=== PATIENT | female | born 1975 ===

== ENCOUNTER 2016-10-02 11:44 | Emergency (ER) | payer OTHER ==
[2016-10-02 11:44] VITALS: BMI 28.4
[2016-10-02 11:50] VITALS: O2SAT 100
[2016-10-02 13:07] LABS: SQUAMOUS EPITHIAL 1 /hpf (0-5); URINE BACTERIA RARE (<OCC); URINE BILIRUBIN NEGATIVE (NEGATIVE); URINE BLOOD NEGATIVE (NEGATIVE); URINE CLARITY Clear (Clear); URINE COLOR Straw (YELLOW); URINE GLUCOSE (UA) NORMAL (Normal); URINE LEUKOCYTE ESTERASE NEG Leu/uL (Negative); URINE NITRATE NEGATIVE (NEGATIVE); URINE PROTEIN NEGATIVE (NEGATIVE); URINE UROBILINOGEN NORMAL mg/dL (0.2-1.0)
--- NOTE | 2016-10-02 13:40 | C.PDOC ---
History Of Present Illness A 41 y/o female c/o suprapubic pain with nausea for the last 3 days. Pt states nausea occurred prior to the lower abdominal pain. Pain is described as intermittent and notes it feels "inflamed" with 2 episodes of vomiting. Denies fever, chills, vaginal bleeding, discharge, dysuria, hematuria, diarrhea, or any other complaints. LMP was August 16 and pt is unsure if she is . Time Seen by Provider: 10/02/16 12:20 Chief Complaint (Nursing): GI Problem History Per: Patient History/Exam Limitations: no limitations Onset/Duration Of Symptoms: Days Current Symptoms Are (Timing): Still Present Severity: Mild Location Of Pain/Discomfort: Suprapubic Radiation Of Pain To:: None Quality Of Discomfort: Burning Associated Symptoms: Nausea, Vomiting. denies: Diarrhea Recent travel outside of the [place]: No Additional History Per: Patient Abnormal Vaginal Bleeding: No Last Menstral Period: August 16, 2016 Past Medical History Reviewed: Historical Data, Nursing Documentation, Vital Signs Vital Signs: Last Vital Signs Temp 97.9 F 10/02/16 16:21 Pulse 70 10/02/16 16:21 Resp 18 10/02/16 16:21 BP 123/84 10/02/16 16:21 Pulse Ox 100 10/02/16 16:21 Surgical History: Family History: States: Unknown Family Hx - Social History Hx Alcohol Use: No Hx Substance Use: No - Immunization History Hx Tetanus Toxoid Vaccination: No Hx Influenza Vaccination: No Hx Pneumococcal Vaccination: No Review Of Systems Except As Marked, All Systems Reviewed And Found Negative. Constitutional: Negative for: Fever, Chills Gastrointestinal: Positive for: Nausea, Vomiting, Abdominal Pain (Suprapubic). Negative for: Diarrhea Genitourinary: Negative for: Dysuria, Hematuria, Vaginal Discharge, Vaginal Bleeding Physical Exam - Physical Exam Appears: Non-toxic, No Acute Distress Skin: Warm, Dry Head: Atraumatic, Normacephalic Eye(s): bilateral: Normal Inspection, PERRL, EOMI Oral Mucosa: Moist Neck: Normal, Normal ROM, Trachea Midline Cardiovascular: Rhythm Regular, No Murmur Respiratory: Normal Breath Sounds, No Accessory Muscle Use, No Rales, No Rhonchi , No Wheezing Gastrointestinal/Abdominal: Bowel Sounds (normal), Soft, Tenderness (Suprapubic tenderness), No Organomegaly, No Mass, No Distention, No Guarding, No Rebound Back: Normal Inspection, No CVA Tenderness, No Vertebral Tenderness Pelvic: Normal External Exam, No Vaginal Bleeding, No Vaginal Discharge, No Cervical Motion Tenderness, No Adnexal Tenderness, Tender Uterus, Other (COMPLIANCE AIDEGIBSON Cabrera was present during exam) Extremity: Normal ROM, No Tenderness, No Calf Tenderness, Capillary Refill ( normal), No Deformity, No Swelling Neurological/Psych: Oriented x3, Normal Speech, Normal Cognition, Normal Motor, Normal Sensation ED Course And Treatment - Laboratory Results Result Diagrams: 10/02/16 14:20 10/02/16 14:20 Lab Interpretation: Normal Urine POC: Negative O2 Sat by Pulse Oximetry: 100 (RA) Pulse Ox Interpretation: Normal - CT Scan/US US pelvis Other Rad Studies (CT/US): Read By Radiologist CT/US Interpretation: FINDINGS: UTERUS: Measures 11.1 x 4.9 x 7.1 cm. Normal in size and appearance. No fibroid or other mass lesion seen. ENDOMETRIUM: Measures 16 mm in diameter. Unremarkable. CERVIX: No cervical abnormality identified. RIGHT OVARY: Measures 3.3 x 2.0 x 2.9 cm. No solid mass. Normal flow. Simple cyst, 1.9 x 1.8 x 1.3 cm, likely physiologic. LEFT OVARY: Measures 2.8 x 1.8 x 3.0 cm. No solid mass. Normal flow. Simple cyst, 1.8 x 1.4 x 1.6 cm. Likely physiologic. FREE FLUID: No significant free fluid noted. OTHER FINDINGS: None. IMPRESSION: Unremarkable pelvic ultrasound examination. Small simple cysts in each ovary, likely physiologic. Medical Decision Making Medical Decision Making: Impression: A 41 y/o female c/o suprapubic pain with nausea for the last 3 days. Based on exam, to r/o ectopic , UTI, vs PID Plans: -UA -US Pelvis -Blood labs -Reassess On reeval: Patient still continued to c/o suprapubic pain. Patient is laying in bed in mild painful distress. UA and HCG both negative. Pelvic exam performed by PA ( see physical exam). Labs and US pelvic ordered. On second re-evaluation : Pt is in no acute distress at this time, she reports significant improvement of pain. On exam, abdomen is soft with no tenderness. Diagnostic results reviewed and d/w the patient in great detail. Labs wnl. Pelvic US shows physiologic ovarian cyst otherwise no acute findings. Patient informed of the possibility of PID and will treat patient as such. Rocephin 250 mg IV ordered. Rx for doxycycline provided, advised to f/u with head of design/pmd. Pt was instructed to follow up with PMD or head of design within 1-2 days if symptoms persists. Disposition - Disposition Referrals: [facility] at [facility] [Outside] Disposition: HOME/ ROUTINE Disposition Time: 16:06 Condition: STABLE Prescriptions: Doxycycline Hyclate [Doryx] 100 mg PO BID #28 cap Instructions: Pelvic Inflammatory Disease (ED), Pelvic Pain in Women (ED) Forms: Work Excuse Print Language: PERUVIAN - Clinical Impression Clinical Impression: Pelvic pain, PID (acute pelvic inflammatory disease) - PA / TOBACCO EDUCATOR / Resident Statement MD/DO has reviewed & agrees with the documentation as recorded. - Scribe Statement The provider has reviewed the documentation as recorded by the Scribe Bart nguyen All medical record entries made by the Jessicaiblizzie were at my direction and personally dictated by me. I have reviewed the chart and agree that the record accurately reflects my personal performance of the history, physical exam, medical decision making, and the department course for this patient. I have also personally directed, reviewed, and agree with the discharge instructions and disposition.
[2016-10-02 14:27] LABS: BASO % 0.5 % (0.0-2.0); EOS # 0.1 K/uL (0.0-0.7); EOS % 1.2 % (0.0-4.0); HEMOGLOBIN 12.6 g/dL (11.0-16.0); LYMPH # 1.4 K/uL (1.0-4.3); LYMPH % 24.7 % (20.0-40.0); MEAN CELL VOLUME 83.7 fL (81.0-99.0); MEAN CORPUSCULAR HEMOGLOBIN 28.4 pg (27.0-31.0); MEAN CORPUSCULAR HGB CONC 33.9 g/dL (33.0-37.0); MEAN PLATELET VOLUME 9.1 fL (7.2-11.7); MONO # 0.4 K/uL (0.0-0.8); MONO % 7.9 % (0.0-10.0); NEUT # 3.6 K/uL (1.8-7.0); NEUT % 65.7 % (50.0-75.0); RBC 4.44 Mil/uL (3.80-5.20); RED CELL DISTRIBUTION WIDTH 13.1 % (11.5-14.5); WHITE BLOOD COUNT 5.5 K/uL (4.8-10.8)
[2016-10-02 14:43] LABS: ALB/GLOB RATIO 1.1 (1.0-2.1); AST/SGOT 60 U/L (14-36); BLOOD UREA NITROGEN 11 mg/dL (7-17); CALCIUM 8.8 mg/dl (8.6-10.4); GFR AFRICAN-AMERICAN > 60; GFR NON-AFRICAN AMERICAN > 60
[2016-10-02 14:44] LABS: ALT/SGPT 48 U/L (9-52)
[2016-10-02 15:11] VITALS: PULSE 70; RESP 18
--- NOTE | 2016-10-02 15:54 | US ---
HISTORY: pelvic pain, r/o ovarian torsion COMPARISON: None available. TECHNIQUE: Transabdominal and transvaginal FINDINGS: UTERUS: Measures 11.1 x 4.9 x 7.1 cm. Normal in size and appearance. No fibroid or other mass lesion seen. ENDOMETRIUM: Measures 16 mm in diameter. Unremarkable. CERVIX: No cervical abnormality identified. RIGHT OVARY: Measures 3.3 x 2.0 x 2.9 cm. No solid mass. Normal flow. Simple cyst, 1.9 x 1.8 x 1.3 cm, likely physiologic. LEFT OVARY: Measures 2.8 x 1.8 x 3.0 cm. No solid mass. Normal flow. Simple cyst, 1.8 x 1.4 x 1.6 cm. Likely physiologic. FREE FLUID: No significant free fluid noted. OTHER FINDINGS: None. IMPRESSION: Unremarkable pelvic ultrasound examination. Small simple cysts in each ovary, likely physiologic.
[2016-10-02] MEDS ORDERED: cefTRIAXone (Rocephin) 250 mg Inj IVPB STA (16:03)
[2016-10-02 16:22] VITALS: BP 123/84; TEMP 97.9
== END 2016-10-02 16:56 | disposition home or self-care (01) ==
LOC: C.ER 11:44
DX: N73.0 Acute parametritis and pelvic cellulitis (principal)
CPT/HCPCS: 76830; 76856; 80053; 81001; 85025; 87086; 96374; 96375; 99284; J0696; J1885; J2405

== ENCOUNTER 2016-12-07 02:35 | Emergency (ER) | payer OTHER ==
[2016-12-07 02:35] VITALS: BMI 28.4
--- NOTE | 2016-12-07 02:59 | C.PDOC ---
History Of Present Illness 41 year old female who presents to the ER with a complaint of lower abdominal pain that began tonight associated with vaginal discharge. Denies dysuria or fever. Time Seen by Provider: 12/07/16 02:50 Chief Complaint (Nursing): Abdominal Pain History Per: Patient History/Exam Limitations: no limitations Onset/Duration Of Symptoms: Hrs Current Symptoms Are (Timing): Still Present Location Of Pain/Discomfort: Suprapubic Radiation Of Pain To:: None Quality Of Discomfort: Unable To Describe Associated Symptoms: denies: Fever, Urinary Symptoms Exacerbating Factors: None Alleviating Factors: None Recent travel outside of the [place]: No Abnormal Vaginal Bleeding: No Last Menstral Period: October Past Medical History Reviewed: Historical Data, Nursing Documentation, Vital Signs Vital Signs: Last Vital Signs Temp 98.2 F 12/07/16 05:01 Pulse 83 12/07/16 05:01 Resp 18 12/07/16 05:01 BP 119/77 12/07/16 05:01 Pulse Ox 100 12/07/16 05:01 - Medical History PMH: No Chronic Diseases Surgical History: Family History: States: Unknown Family Hx - Social History Hx Alcohol Use: Yes Hx Substance Use: No - Immunization History Hx Tetanus Toxoid Vaccination: No Hx Influenza Vaccination: No Hx Pneumococcal Vaccination: No Review Of Systems Constitutional: Negative for: Fever Genitourinary: Positive for: Vaginal Discharge. Negative for: Dysuria, Hematuria Physical Exam - Physical Exam Appears: Non-toxic, No Acute Distress Skin: Normal Color, Warm, Dry Head: Atraumatic, Normacephalic Oral Mucosa: Moist Chest: Symmetrical, No Tenderness Cardiovascular: Rhythm Regular, No Murmur Respiratory: Normal Breath Sounds, No Rales, No Rhonchi, No Wheezing Gastrointestinal/Abdominal: Soft, Tenderness (Hypogastric) Pelvic: Normal External Exam, Cervical Motion Tenderness, Adnexal Tenderness ( Right), Other (Scant off white mucous discharge) Neurological/Psych: Oriented x3, Normal Speech, Normal Cognition ED Course And Treatment - Laboratory Results Result Diagrams: 12/07/16 03:12 12/07/16 03:12 Progress Note: Blood work, urinalysis, and pelvic US ordered. On reevaluation, abdomen is soft, mild hypogastric tenderness, no rebound or guarding; no cervical tenderness or adnexal tenderness. Disposition Counseled Patient/Family Regarding: Diagnosis - Disposition Referrals: [facility] [Outside] Disposition: HOME/ ROUTINE Disposition Time: 05:27 Condition: STABLE Prescriptions: Acetaminophen [Tylenol 325mg tab] 650 mg PO Q4 #20 tab Instructions: Abdominal Pain in (ED), First Trimester (ED) Forms: [employer] (Maltese), Gen Discharge Inst Danish Print Language: YORUBA - POA Present On Arrival: None - Clinical Impression Clinical Impression: , Pelvic pain affecting - Scribe Statement The provider has reviewed the documentation as recorded by the Scriblizzie Love All medical record entries made by the Scribe were at my direction and personally dictated by me. I have reviewed the chart and agree that the record accurately reflects my personal performance of the history, physical exam, medical decision making, and the department course for this patient. I have also personally directed, reviewed, and agree with the discharge instructions and disposition.
--- NOTE | 2016-12-07 03:00 | C.PDOC ---
Time Seen by Provider: 12/07/16 02:50 Chief Complaint (Nursing): Abdominal Pain Past Medical History Surgical History: Family History: States: Unknown Family Hx - Social History Hx Alcohol Use: Yes Hx Substance Use: No - Immunization History Hx Tetanus Toxoid Vaccination: No Hx Influenza Vaccination: No Hx Pneumococcal Vaccination: No Disposition - Disposition Forms: [employer] (Montenegrin)
[2016-12-07 03:18] LABS: BASO % 0.4 % (0.0-2.0); EOS # 0.2 K/uL (0.0-0.7); EOS % 2.4 % (0.0-4.0); HEMATOCRIT 36.7 % (34.0-47.0); LYMPH # 2.2 K/uL (1.0-4.3); MEAN CELL VOLUME 85.2 fL (81.0-99.0); MEAN CORPUSCULAR HEMOGLOBIN 28.5 pg (27.0-31.0); MEAN CORPUSCULAR HGB CONC 33.5 g/dL (33.0-37.0); MEAN PLATELET VOLUME 8.2 fL (7.2-11.7); MONO # 0.5 K/uL (0.0-0.8); RED CELL DISTRIBUTION WIDTH 13.9 % (11.5-14.5); WHITE BLOOD COUNT 6.9 K/uL (4.8-10.8)
[2016-12-07] MEDS ORDERED: Sodium Chloride 0.9% 1,000 ML IV ONE (03:27)
[2016-12-07 03:28] LABS: RBC URINE 1 /hpf (0-3); URINE BACTERIA RARE (<OCC); URINE BILIRUBIN NEGATIVE (NEGATIVE); URINE BLOOD NEGATIVE (NEGATIVE); URINE COLOR Straw (YELLOW); URINE GLUCOSE (UA) NORMAL (Normal); URINE KETONE NEGATIVE (NEGATIVE); URINE LEUKOCYTE ESTERASE NEG Leu/uL (Negative); URINE PROTEIN NEGATIVE (NEGATIVE); URINE UROBILINOGEN NORMAL mg/dL (0.2-1.0); WBC URINE 1 /hpf (0-5)
[2016-12-07] MEDS ORDERED: Sodium Chloride 0.9% 1,000 ML ONE (03:31)
[2016-12-07 03:34] LABS: ALB/GLOB RATIO 1.2 (1.0-2.1); ALKALINE PHOSPHATASE 64 U/L (38-126); ALT/SGPT 28 U/L (9-52); AST/SGOT 33 U/L (14-36); BILIRUBIN,TOTAL 0.3 mg/dL (0.2-1.3); BLOOD UREA NITROGEN 13 mg/dL (7-17); CALCIUM 9.2 mg/dl (8.6-10.4); CARBON DIOXIDE 24 mmol/L (22-30); CHLORIDE 103 mmol/L (98-107); GFR AFRICAN-AMERICAN > 60; GLUCOSE,RANDOM 107 mg/dL (65-105); SODIUM 141 mmol/L (132-148); TOTAL PROTEIN 7.4 g/dL (6.3-8.3)
--- NOTE | 2016-12-07 05:01 | US ---
EXAM: US First Trimester, Transabdominal CLINICAL HISTORY: 41 years old, female; Pain; complicated by abdominal or pelvic pain; Right lower quadrant; First trimester; Gestational age or lmp: 7-6-17; ; Additional info: Right adnexal tenderness TECHNIQUE: Real-time transabdominal obstetrical ultrasound of the maternal pelvis and a first trimester with image documentation. COMPARISON: No relevant prior studies available. FINDINGS: Gestation: Single live intrauterine gestation. heart rate of 154 beats per minute. Velarde-rump length of 1.74 cm, correlating with gestational age of 8 weeks 1 day. Uterus/cervix: 1.3 x 0.9 x 1.8 cm collection along gestational sac. No cervical dilatation or effacement. Ovaries: RIGHT ovary: Normal. LEFT ovary: 2.4 x 1.7 x 2.6 cm anechoic lesion. No adnexal masses. Free fluid: No significant free fluid. IMPRESSION: 1. Single live intrauterine gestation. 2. Subchorionic hemorrhage. 3. LEFT ovarian cyst.
[2016-12-07 05:02] VITALS: BP 119/77; PULSE 83; RESP 18; TEMP 98.2; O2SAT 100
== END 2016-12-07 05:42 | disposition home or self-care (01) ==
LOC: C.ER 02:35
DX: O26.891 Other specified pregnancy related conditions, first trimester (principal); R10.2 Pelvic and perineal pain; Z3A.08 8 weeks gestation of pregnancy
CPT/HCPCS: 76801; 80053; 81001; 83690; 84702; 84703; 85025; 86850; 86900; 87070; 87081; 87086; 87491; 87591; 96360; 99285; J7040

== ENCOUNTER 2017-02-15 15:34 | Emergency (ER) | payer SELFPAY ==
[2017-02-15 15:35] VITALS: BMI 28.4
[2017-02-15 15:43] VITALS: RESP 16; TEMP 97.9
[2017-02-15] MEDS ORDERED: Sodium Chloride 0.9% 1,000 ML IV ONE (16:23)
[2017-02-15] MEDS ORDERED: Sodium Chloride 0.9% 1,000 ML ONE (16:30)
[2017-02-15 16:32] LABS: BASO % 0.5 % (0.0-2.0); EOS # 0.1 K/uL (0.0-0.7); HEMATOCRIT 34.1 % (34.0-47.0); LYMPH # 1.6 K/uL (1.0-4.3); LYMPH % 19.6 % (20.0-40.0); MEAN CELL VOLUME 85.9 fL (81.0-99.0); MEAN CORPUSCULAR HEMOGLOBIN 29.7 pg (27.0-31.0); MEAN CORPUSCULAR HGB CONC 34.5 g/dL (33.0-37.0); MEAN PLATELET VOLUME 7.9 fL (7.2-11.7); MONO # 0.6 K/uL (0.0-0.8); MONO % 7.4 % (0.0-10.0); NRBC % 0.1 % (0.0-2.0); RED CELL DISTRIBUTION WIDTH 13.6 % (11.5-14.5); WHITE BLOOD COUNT 8.2 K/uL (4.8-10.8)
[2017-02-15 16:43] LABS: CHLORIDE 104 mmol/L (98-107); RBC URINE 1 /hpf (0-3); URINE BACTERIA FEW (<OCC); URINE BILIRUBIN NEGATIVE (NEGATIVE); URINE BLOOD NEGATIVE (NEGATIVE); URINE COLOR Yellow (YELLOW); URINE GLUCOSE (UA) NORMAL (Normal); URINE KETONE NEGATIVE (NEGATIVE); URINE PROTEIN NEGATIVE (NEGATIVE); URINE UROBILINOGEN NORMAL mg/dL (0.2-1.0); WBC URINE 6 /hpf (0-5)
[2017-02-15 16:44] LABS: POTASSIUM 3.6 mmol/L (3.6-5.2); SODIUM 133 mmol/L (132-148); URINE LEUKOCYTE ESTERASE 1+ Leu/uL (Negative)
[2017-02-15 16:46] LABS: ALB/GLOB RATIO 0.9 (1.0-2.1); AST/SGOT 40 U/L (14-36); BILIRUBIN,TOTAL 0.3 mg/dL (0.2-1.3); CARBON DIOXIDE 20 mmol/L (22-30); GFR AFRICAN-AMERICAN > 60; TOTAL PROTEIN 7.7 g/dL (6.3-8.3)
[2017-02-15 16:47] LABS: ALKALINE PHOSPHATASE 54 U/L (38-126); ALT/SGPT 54 U/L (9-52); BLOOD UREA NITROGEN 10 mg/dL (7-17); CALCIUM 8.6 mg/dl (8.6-10.4); GLUCOSE,RANDOM 74 mg/dL (65-105)
--- NOTE | 2017-02-15 17:40 | C.PDOC ---
History Of Present Illness 42 year old female, who is currently around 17 weeks gestational age, presents to the ED for evaluation of lower pelvic discomfort which began around 2 days ago. Patient underwent an ultrasound when she was around 10 weeks , and the results were unremarkable. Patient denies vaginal discharge/bleeding at this time. Time Seen by Provider: 02/15/17 15:55 Chief Complaint (Nursing): Abdominal Pain History Per: Patient History/Exam Limitations: no limitations Onset/Duration Of Symptoms: Days (2) Current Symptoms Are (Timing): Still Present Location Of Pain/Discomfort: Other (lower pelvic region ) Radiation Of Pain To:: None Additional History Per: Patient Abnormal Vaginal Bleeding: No Past Medical History Reviewed: Historical Data, Nursing Documentation, Vital Signs Vital Signs: Last Vital Signs Temp 97.9 F 02/15/17 15:38 Pulse 78 02/15/17 20:05 Resp 16 02/15/17 20:05 BP 132/78 02/15/17 20:05 Pulse Ox 98 02/15/17 20:05 - Medical History PMH: No Chronic Diseases Surgical History: Family History: States: Unknown Family Hx - Social History Hx Alcohol Use: Yes Hx Substance Use: No - Immunization History Hx Tetanus Toxoid Vaccination: No Hx Influenza Vaccination: No Hx Pneumococcal Vaccination: No Review Of Systems Genitourinary: Positive for: Pelvic Pain. Negative for: Vaginal Discharge, Vaginal Bleeding Physical Exam - Physical Exam Appears: Non-toxic, No Acute Distress, Other (obese ) Skin: Normal Color, Warm, Dry Eye(s): bilateral: Normal Inspection Oral Mucosa: Moist Neck: Supple Chest: Symmetrical, No Deformity, No Tenderness Cardiovascular: Rhythm Regular, No Murmur Respiratory: Normal Breath Sounds, No Rales, No Rhonchi, No Wheezing Gastrointestinal/Abdominal: Soft, No Tenderness, No Guarding, No Rebound, Other (uterus is 2cm below umbilicus ) Extremity: Normal ROM, Capillary Refill (less than 2 seconds ) Neurological/Psych: Oriented x3, Normal Speech, Normal Cognition Gait: Steady ED Course And Treatment - Laboratory Results Result Diagrams: 02/15/17 16:28 02/15/17 16:28 Lab Interpretation: Normal (quant hcg 25,580, O+) Urine POC: Positive O2 Sat by Pulse Oximetry: 99 (on RA) Pulse Ox Interpretation: Normal - CT Scan/US Transabd US Other Rad Studies (CT/US): Read By Radiologist, Radiology Report Reviewed CT/US Interpretation: IMPRESSION: 1. Single live intrauterine gestation. Progress Note: Bloodwork, UA, Transabd US ordered and reviewed. Pepcid IVP, Tylenol PO, Zofran IVP and IV Fluids administered. Reevaluation Time: 19:53 Reassessment Condition: Improved Medical Decision Making Medical Decision Making: normal 18W1D consider - f/u w opt OB Disposition Doctor Will See Patient In The: Office Counseled Patient/Family Regarding: Studies Performed, Diagnosis - Disposition Referrals: [facility] [Outside] [facility] [Outside] Disposition: HOME/ ROUTINE Disposition Time: 19:53 Condition: GOOD Additional Instructions: Normal @ 18W1D no UTI QHCG 25,580 O+ follow-up with your OB as needed Constipation: consider a laxative and diet/exercise changes. Instructions: (ED), Constipation (ED) Forms: [employer] (Portuguese) Print Language: INDIAN - Clinical Impression Clinical Impression: , related pelvic pain in second trimester, antepartum - Scribe Statement The provider has reviewed the documentation as recorded by the Scribe (Pura Linares) Provider Attestation: All medical record entries made by the Scribe were at my direction and personally dictated by me. I have reviewed the chart and agree that the record accurately reflects my personal performance of the history, physical exam, medical decision making, and the department course for this patient. I have also personally directed, reviewed, and agree with the discharge instructions and disposition.
--- NOTE | 2017-02-15 19:49 | US ---
EXAM: US After First Trimester, Transabdominal CLINICAL HISTORY: 42 years old, female; Pain; complicated by abdominal or pelvic pain; Lower; Second trimester; Gestational age or lmp: 18w1d; ; Prior surgery; Surgery date: 6+ months; Surgery type: Prev c sections; Additional info: 17 weeks, lower pelvic pain TECHNIQUE: Real-time transabdominal obstetrical ultrasound of the maternal pelvis and a second or third trimester with image documentation. COMPARISON: No relevant prior studies available. FINDINGS: Fetus: Single live intrauterine gestation. Heart rate: heart rate of 144 beats per minute. Presentation: Breech. Placenta: Posterior. No placenta previa or abruption. Amniotic fluid: Normal. Anatomy: No gross anomaly is appreciated. BIOMETRICS Gestational age by US: Estimated gestational age of 18 weeks 1 day by measurements. EFW: Estimated weight of 229 g. BPD: 3.9 cm, correlating with 17 weeks 6 days. HC: 14.8 cm, correlating with 18 weeks 0 days. AC: 12.8 cm, correlating with 18 weeks 2 days. FL: 2.7 cm, correlating with 18 weeks 1 day. MATERNAL: Uterus: Unremarkable. No myometrial mass. Cervix: No cervical dilatation or effacement. Adnexa: Ovaries not visualized. No adnexal masses. Free fluid: No significant free fluid. IMPRESSION: 1. Single live intrauterine gestation.
[2017-02-15 20:05] VITALS: BP 132/78; PULSE 78
[2017-02-15 20:45] VITALS: O2SAT 99
== END 2017-02-15 20:05 | disposition home or self-care (01) ==
LOC: C.ER 15:34
DX: O26.892 Other specified pregnancy related conditions, second trimester (principal); R10.2 Pelvic and perineal pain; Z3A.18 18 weeks gestation of pregnancy
CPT/HCPCS: 76815; 80053; 81001; 84702; 85025; 86850; 86900; 96361; 96374; 96375; 99284; J2405; J7040

== ENCOUNTER 2018-02-25 19:16 | Emergency (ER) | payer OTHER ==
[2018-02-25 19:17] VITALS: BMI 28.4
--- NOTE | 2018-02-25 19:39 | C.PDOC ---
History Of Present Illness 43 year old female presents to the ED for evaluation of a headache which has been intermittent for 3 weeks. Patient states her symptoms worsened tonight, prompting visit. Patient reports pain around her right eye region and reports n ausea. She denies fever, chills, vomiting. Chief Complaint (Nursing): Weakness/Neurological Deficit History Per: Patient History/Exam Limitations: no limitations Onset/Duration Of Symptoms: Intermittent Episodes, Other (3 weeks ) Current Symptoms Are (Timing): Still Present Past Medical History Reviewed: Historical Data, Nursing Documentation, Vital Signs - Medical History PMH: No Chronic Diseases Surgical History: Family History: States: Unknown Family Hx - Social History Hx Alcohol Use: Yes Hx Substance Use: No - Immunization History Hx Tetanus Toxoid Vaccination: No Hx Influenza Vaccination: No Hx Pneumococcal Vaccination: No Review Of Systems Constitutional: Negative for: Fever, Chills Gastrointestinal: Positive for: Nausea. Negative for: Vomiting Neurological: Positive for: Headache Physical Exam - Physical Exam Appears: Non-toxic, No Acute Distress Skin: Normal Color, Warm, Dry Head: Atraumatic, Normacephalic Eye(s): bilateral: Normal Inspection Oral Mucosa: Moist Neck: Supple Chest: Symmetrical, No Deformity, No Tenderness Cardiovascular: Rhythm Regular, No Murmur Respiratory: Normal Breath Sounds, No Rales, No Rhonchi, No Wheezing Extremity: Normal ROM, Capillary Refill (less than 2 seconds ) Neurological/Psych: Oriented x3, Normal Speech, Normal Cognition Gait: Steady ED Course And Treatment - Laboratory Results Result Diagrams: 02/25/18 19:46 02/25/18 20:35 ECG: Interpreted By Me, Viewed By Me ECG Rhythm: Sinus Rhythm ECG Interpretation: Normal, No Acute Changes Interpretation Of ECG: NSR, normal tracings. Rate From EC O2 Sat by Pulse Oximetry: 100 (on RA) Pulse Ox Interpretation: Normal Progress Note: Bloodwork, CT Head, EKG ordered and reviewed. Toradol IVP given. Disposition Counseled Patient/Family Regarding: Diagnosis - Disposition Referrals: [facility] at [facility] [Outside] Disposition: HOME/ ROUTINE Disposition Time: 21:10 Condition: STABLE Prescriptions: Naproxen 375 mg PO Q6 #14 tablet Potassium Chloride [K-Tab ER] 20 meq PO DAILY #10 tablet.er Instructions: Headache, Adult, Hypokalemia (DC) Forms: [employer] (Tanzanian), Gen Discharge Inst Kazakh Print Language: [place]IZ[place] - POA Present On Arrival: None - Clinical Impression Clinical Impression: Headache, Hypokalemia - Scribe Statement The provider has reviewed the documentation as recorded by the Scribe (Pura Linares) Provider Attestation: All medical record entries made by the Scribe were at my direction and personally dictated by me. I have reviewed the chart and agree that the record accurately reflects my personal performance of the history, physical exam, medical decision making, and the department course for this patient. I have also personally directed, reviewed, and agree with the discharge instructions and disposition.
[2018-02-25 19:52] LABS: BASO % 0.5 % (0.0-2.0); EOS # 0.2 K/uL (0.0-0.7); EOS % 3.5 % (0.0-4.0); HEMOGLOBIN 13.2 g/dL (11.0-16.0); LYMPH # 2.3 K/uL (1.0-4.3); LYMPH % 40.2 % (20.0-40.0); MEAN CELL VOLUME 81.1 fL (81.0-99.0); MEAN CORPUSCULAR HEMOGLOBIN 28.3 pg (27.0-31.0); MEAN CORPUSCULAR HGB CONC 34.9 g/dL (33.0-37.0); MEAN PLATELET VOLUME 8.1 fL (7.2-11.7); MONO # 0.4 K/uL (0.0-0.8); MONO % 7.4 % (0.0-10.0); NEUT # 2.8 K/uL (1.8-7.0); NEUT % 48.4 % (50.0-75.0); NRBC % 0.1 % (0.0-2.0); RBC 4.66 Mil/uL (3.80-5.20); WHITE BLOOD COUNT 5.8 K/uL (4.8-10.8)
[2018-02-25 20:03] VITALS: O2SAT 100
[2018-02-25 20:12] LABS: BARBITURATES, UR NEGATIVE (NEGATIVE); BENZODIAZEPINES, UR NEGATIVE (NEGATIVE); OPIATES, UR NEGATIVE (NEGATIVE); PHENCYCLIDINE, UR NEGATIVE (NEGATIVE)
[2018-02-25 20:57] LABS: ALB/GLOB RATIO 1.3 (1.0-2.1); ALBUMIN 4.2 g/dL (3.5-5.0); ALT/SGPT 25 U/L (9-52); AST/SGOT 35 U/L (14-36); BLOOD UREA NITROGEN 12 mg/dL (7-17); CALCIUM 8.7 mg/dl (8.6-10.4); GFR NON-AFRICAN AMERICAN > 60
[2018-02-25] MEDS ORDERED: Potassium Chloride 20 mEq ER Tab PO STA (21:05)
[2018-02-25] MEDS ORDERED: Potassium Chloride 20 mEq ER Tab PO ONE (21:14)
[2018-02-25 21:26] VITALS: BP 128/76; PULSE 65; RESP 18; TEMP 98.3
--- NOTE | 2018-02-26 04:57 | CT ---
Date of service: 02/25/2018 PROCEDURE: CT HEAD WITHOUT CONTRAST. HISTORY: Headache COMPARISON: None available. TECHNIQUE: Axial computed tomography images were obtained through the head/brain without intravenous contrast. Radiation dose: Total exam DLP = 1068.92 mGy-cm. This CT exam was performed using one or more of the following dose reduction techniques: Automated exposure control, adjustment of the mA and/or kV according to patient size, and/or use of iterative reconstruction technique. FINDINGS: HEMORRHAGE: No intracranial hemorrhage. BRAIN: No mass effect or edema. No atrophy or chronic microvascular ischemic changes. VENTRICLES: Unremarkable. No hydrocephalus. CALVARIUM: Unremarkable. PARANASAL SINUSES: Unremarkable as visualized. No significant inflammatory changes. MASTOID AIR CELLS: Unremarkable as visualized. No inflammatory changes. OTHER FINDINGS: None. IMPRESSION: No evidence of acute intracranial hemorrhage intracranial collection mass effect or midline shift. Preliminary report was submitted by [facility] Radiology contains concordant findings.
--- NOTE | 2018-02-28 20:05 | CARD ---
APPROVED REPORT Date of service: 02/25/2018 EKG Measurement Heart [id number] <Conclusion> Normal sinus rhythm Normal ECG
== END 2018-02-25 21:27 | disposition home or self-care (01) ==
LOC: C.ER 19:16
DX: R51 Headache (principal); E87.6 Hypokalemia
CPT/HCPCS: 70450; 80053; 80324; 80345; 80346; 80349; 80353; 80358; 80361; 82948; 83992; 85025; 93005; 96374; 99285; J1885

== ENCOUNTER 2018-04-12 11:19 | Emergency (ER) | payer OTHER ==
[2018-04-12 11:19] VITALS: BMI 28.4
[2018-04-12 11:48] VITALS: RESP 18; O2SAT 98
--- NOTE | 2018-04-12 13:06 | RAD ---
HISTORY: cough fever green sputum COMPARISON: None available TECHNIQUE: Chest PA and lateral FINDINGS: LUNGS: No focal consolidation. Please note that chest x-ray has limited sensitivity for the detection of pulmonary masses. PLEURA: No significant pleural effusion identified. No definite pneumothorax . CARDIOVASCULAR: Heart size appears within limits. Ectatic aorta. No atherosclerotic calcification present. OSSEOUS STRUCTURES: No acute osseous abnormality identified. VISUALIZED UPPER ABDOMEN: Unremarkable. OTHER FINDINGS: None. IMPRESSION: No focal consolidation.
--- NOTE | 2018-04-12 13:10 | C.PDOC ---
History Of Present Illness 43 year old female presents to the ED complaining of subjective fever, bodyaches, sore throat, and cough with green sputum for 3 days. Reports she has been taking 1/2 tab of Tylenol with no improvement. Patient has not received Flu vaccine this season. Reports son is also sick. Time Seen by Provider: 04/12/18 11:37 Chief Complaint (Nursing): Flu-like Symptoms History Per: Patient, [employer] Att[employer] (Gisela #[id number]) History/Exam Limitations: no limitations Onset/Duration Of Symptoms: Days (3) Location Of Pain: Throat, Diffuse Myalgias Sick Contacts (Context): Family Member(s) (son) Associated Symptoms: Fever, Sore Throat, Cough, Sputum (green). denies: Nasal Congestion, Nausea, Vomiting, Diarrhea Ear Symptoms: Bilateral: None Past Medical History Reviewed: Historical Data, Nursing Documentation, Vital Signs Vital Signs: Last Vital Signs Temp 98.9 F 04/12/18 11:42 Pulse 87 04/12/18 11:42 Resp 18 04/12/18 11:42 BP 123/87 04/12/18 11:42 Pulse Ox 98 04/12/18 11:42 - Medical History PMH: No Chronic Diseases Surgical History: Cholecystectomy, Family History: States: No Known Family Hx - Social History Hx Alcohol Use: No Hx Substance Use: No - Immunization History Hx Tetanus Toxoid Vaccination: Yes Hx Influenza Vaccination: Yes Hx Pneumococcal Vaccination: Yes Review Of Systems Constitutional: Positive for: Fever, Other (body aches ) ENT: Positive for: Throat Pain. Negative for: Ear Pain, Nose Discharge, Nose Congestion Cardiovascular: Negative for: Chest Pain Respiratory: Positive for: Cough, Sputum (green ). Negative for: Shortness of Breath Gastrointestinal: Negative for: Nausea, Vomiting, Abdominal Pain, Diarrhea Physical Exam - Physical Exam Appears: Non-toxic, Other (uncomfortable appearing ) Skin: Warm, Dry, No Rash Head: Normacephalic Eye(s): bilateral: Normal Inspection Ear(s): Bilateral: Normal Nose: Normal Oral Mucosa: Moist Tongue: Normal Appearing Lips: Normal Appearing Teeth: Normal Dentition Gingiva: Normal Appearing Throat: Erythema (mild ), No Exudate, No Other (tonsil enlargement ) Neck: Supple Chest: Symmetrical Cardiovascular: Rhythm Regular Respiratory: No Rales, No Rhonchi, No Wheezing, Other (CTA B/L) Neurological/Psych: Oriented x3, Normal Speech, Normal Cognition Gait: Steady ED Course And Treatment O2 Sat by Pulse Oximetry: 98 (RA) Pulse Ox Interpretation: Normal - Radiology CXR: Viewed By Me, Read By Radiologist CXR Interpretation: Yes: No Acute Disease Medical Decision Making Medical Decision Making: Plan - Tylenol 975mg PO - Tamiflu 75mg PO - POC Urine Preg - CXR pt with flu like symptoms, cxr neg. will tx wiht tamiflu and tylenol, f/u med clinic Disposition Counseled Patient/Family Regarding: Studies Performed, Diagnosis, Need For Followup, Rx Given - Disposition Referrals: [facility] [Outside] Disposition: HOME/ ROUTINE Disposition Time: 13:47 Condition: GOOD Additional Instructions: [place] los medicamentos segn lo prescrito. Seguimiento en clnica medica la prxima semana. Llame para denise colton. Aumente la ingesta de lquidos. Aumentar el reposo en cama. Take medications as prescribed. Follow up in medical clinic next week. Call for appointment. INcrease fluid intake. Increase bed rest. Prescriptions: Acetaminophen [Tylenol 325mg tab] 650 mg PO Q6 #30 tab Oseltamivir Phosphate [Tamiflu] 75 mg PO BID #10 capsule Instructions: Flu, Adult (DC) Forms: Gen Discharge Inst Citizen Of [place], [employer] (Citizen Of [place]) Print Language: HEBREW - Clinical Impression Clinical Impression: Influenza-like illness - PA / INVESTIGATION CLERK / Resident Statement MD/DO has reviewed & agrees with the documentation as recorded. - Scribe Statement The provider has reviewed the documentation as recorded by the Jessicaiblizzie Sidhu All medical record entries made by the Jessicaiblizzie were at my direction and personally dictated by me. I have reviewed the chart and agree that the record accurately reflects my personal performance of the history, physical exam, medical decision making, and the department course for this patient. I have also personally directed, reviewed, and agree with the discharge instructions and disposition.
[2018-04-12 13:56] VITALS: BP 128/86; PULSE 75; TEMP 98.6
== END 2018-04-12 14:00 | disposition home or self-care (01) ==
LOC: C.ER 11:19
DX: J11.1 Influenza due to unidentified influenza virus with other respiratory manifestations (principal)